=== PATIENT | female | born 1965 ===

== ENCOUNTER 2018-01-20 18:39 | Emergency (ER) | payer OTHER ==
[2018-01-20 18:39] VITALS: BMI 23.0
[2018-01-20] MEDS: Albuterol-Ipratrop 3 mg / 0.5 (3 ml) UD INH STA ×2 (19:15→19:25)
[2018-01-20 19:19] LABS: BASO % 0.1 % (0.0-2.0); EOS % 0.2 % (0.0-4.0); HEMOGLOBIN 12.9 g/dL (11.0-16.0); LYMPH # 2.5 K/uL (1.0-4.3); LYMPH % 13.7 % (20.0-40.0); MEAN CELL VOLUME 91.5 fL (81.0-99.0); MEAN CORPUSCULAR HEMOGLOBIN 31.3 pg (27.0-31.0); MEAN CORPUSCULAR HGB CONC 34.2 g/dL (33.0-37.0); MEAN PLATELET VOLUME 9.1 fL (7.2-11.7); MONO # 1.3 K/uL (0.0-0.8); NEUT # 14.2 K/uL (1.8-7.0); NRBC % 0.1 % (0.0-2.0); RBC 4.13 Mil/uL (3.80-5.20)
[2018-01-20] MEDS ORDERED: Albuterol-Ipratrop 3 mg / 0.5 (3 ml) UD ONE ×2 (19:20→20:31)
[2018-01-20 19:31] LABS: CALCIUM 9.7 mg/dl (8.6-10.4); GFR NON-AFRICAN AMERICAN > 60
[2018-01-20 19:37] LABS: ALB/GLOB RATIO 1.2 (1.0-2.1); ALBUMIN 4.1 g/dL (3.5-5.0); ALT/SGPT 42 U/L (9-52); AST/SGOT 31 U/L (14-36); BLOOD UREA NITROGEN 12 mg/dL (7-17)
[2018-01-20 19:42] LABS: B-TYPE NATRIURETIC PEPTIDE 329 pg/mL (0-900)
[2018-01-20] MEDS ORDERED: Albuterol-Ipratrop 3 mg / 0.5 (3 ml) UD INH STA (20:11)
[2018-01-20 20:44] LABS: SQUAMOUS EPITHIAL 1 /hpf (0-5); URINE BACTERIA RARE (<OCC); URINE BILIRUBIN NEGATIVE (NEGATIVE); URINE BLOOD NEGATIVE (NEGATIVE); URINE CLARITY Clear (Clear); URINE COLOR Yellow (YELLOW); URINE GLUCOSE (UA) 3+ mg/dL (Normal); URINE LEUKOCYTE ESTERASE NEG Leu/uL (Negative); URINE PROTEIN NEGATIVE (NEGATIVE); URINE UROBILINOGEN NORMAL mg/dL (0.2-1.0)
[2018-01-20 20:59] LABS: BARBITURATES, UR NEGATIVE (NEGATIVE); BENZODIAZEPINES, UR NEGATIVE (NEGATIVE); PHENCYCLIDINE, UR NEGATIVE (NEGATIVE)
[2018-01-20 21:01] LABS: OPIATES, UR POSITIVE (NEGATIVE)
--- NOTE | 2018-01-20 21:06 | C.PDOC ---
History Of Present Illness 52 y/o female presents to the ER complaining of wheezing and SOB which has been present for the past 3 weeks. Patient states that she was given Medrol Dosepak 3 weeks ago. However, the symptoms returned over the past 2 weeks. Patient reports that she uses Prednisone for rheumatoid arthritis and she has been using Prednisone taper 20 mg x 3 days and 10 mg x 3 days, and 5 mg x 3 days. She notes that she has been using Albuterol MDI without an aerochamber spacer. She usually uses 1 amp of nebulizer every 5 hours but she ran out of her liquids. Denies having cough, chest pain, fever, and chills. Time Seen by Provider: 01/20/18 18:57 Chief Complaint (Nursing): Shortness Of Breath History Per: Patient History/Exam Limitations: no limitations Onset/Duration Of Symptoms: Days Current Symptoms Are (Timing): Still Present Severity: Moderate Past Medical History Reviewed: Historical Data, Nursing Documentation, Vital Signs Vital Signs: Last Vital Signs Temp 98.5 F 01/20/18 21:30 Pulse 72 01/20/18 21:30 Resp 16 01/20/18 21:30 BP 154/80 H 01/20/18 21:30 Pulse Ox 94 L 01/20/18 21:37 - Medical History PMH: Asthma, Fibromyalgia, HTN, Rheumatoid Arthritis Denies: Chronic Kidney Disease Other Surgeries: Hx of surgeries Family History: States: No Known Family Hx - Social History Hx Tobacco Use: No Hx Alcohol Use: No Hx Substance Use: No - Immunization History Hx Tetanus Toxoid Vaccination: No Hx Influenza Vaccination: No Hx Pneumococcal Vaccination: No Review Of Systems Except As Marked, All Systems Reviewed And Found Negative. Constitutional: Negative for: Fever, Chills Cardiovascular: Negative for: Chest Pain Respiratory: Positive for: Shortness of Breath, Wheezing. Negative for: Cough Physical Exam - Physical Exam Appears: Non-toxic, No Acute Distress Skin: Normal Color, Warm, Dry Head: Atraumatic, Normacephalic Eye(s): bilateral: Normal Inspection Nose: Normal Oral Mucosa: Moist Neck: Other (developing buffalo hump, supraclavicular fat pads) Chest: Symmetrical Cardiovascular: Rhythm Regular Respiratory: No Rales, Rhonchi (mild to moderate), Wheezing (mild to moderate wheezing) Gastrointestinal/Abdominal: Soft, No Tenderness, No Guarding, No Rebound, Other (obese) Neurological/Psych: Oriented x3, Normal Speech ED Course And Treatment - Laboratory Results Result Diagrams: 01/20/18 19:15 01/20/18 19:15 Lab Interpretation: Abnormal (leukocytosis, tox + opiates) Urine POC: Negative ECG: Interpreted By Me ECG Rhythm: Sinus Rhythm ECG Interpretation: Normal Rate From EC O2 Sat by Pulse Oximetry: 94 Pulse Ox Interpretation: Abnormal Reevaluation Time: 21:05 Reassessment Condition: Improved Medical Decision Making Medical Decision Making: poor inhaler/MDI technique at home, ran out of neb liquids and timid to use regularly. 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 Persistent Narcotics use h/o abuse [place] [employer] 12 prescriptions from 9 prescribers Disposition Doctor Will See Patient In The: Office Counseled Patient/Family Regarding: Studies Performed, Diagnosis - Disposition Referrals: [facility] [Outside] [facility] [Outside] [facility] [Outside] [place] [facility] [Outside] Disposition: HOME/ ROUTINE Disposition Time: 21:06 Condition: GOOD Additional Instructions: Asthma no further steroids as pt developing Cecil Syndrome and underusing nebulizer treatments MDI to be used with Aerochamber Spacer- makes much more effective Always 2 ampules of Duoneb liquids for inhaled treamtments, every 3-4 hours More treatments @ night if difficulty sleeping/coughing. Extensively educated. Cecil Syndrome: outpatient ACTH, 24 hour urine cortisol stop all steroids Opoid use: Seek assitance through our outpatient resources. Prescriptions: Albuterol HFA [Ventolin HFA 90 mcg/actuation (8 g)] 2 puff IH Q4H PRN #1 puff PRN Reason: asthma Albuterol/Ipratropium [Duoneb 3 MG/3 Ml-0.5 MG/3 Ml 3 Ml] 6 ml IH Q4H PRN #100 neb PRN Reason: asthma Spacer, Inhalation [Aerochamber] 1 dev IH DAILY #1 dev Instructions: Lumberton's Syndrome, Asthma in Adults Forms: [facility]Kinyarwanda) - Clinical Impression Clinical Impression: Chronic pain, Asthma, Cushings syndrome - Scribe Statement The provider has reviewed the documentation as recorded by the Melody Wolf Provider Attestation: All medical record entries made by the Scribe were at my direction and personally dictated by me. I have reviewed the chart and agree that the record accurately reflects my personal performance of the history, physical exam, medical decision making, and the department course for this patient. I have also personally directed, reviewed, and agree with the discharge instructions and disposition.
--- NOTE | 2018-01-20 21:10 | C.PDOC ---
History Of Present Illness 52 y/o female presents to the ER complaining of wheezing and SOB which has been present for the past 3 weeks. Patient states that she was given Medrol Dosepak 3 weeks ago. However, the symptoms returned over the past 2 weeks. Patient reports that she uses Prednisone for rheumatoid arthritis and she has been using Prednisone taper 20 mg x 3 days and 10 mg x 3 days, and 5 mg x 3 days. She notes that she has been using Albuterol MDI without a valved holding chamber. She usually uses 1 amp of nebulizer every 5 hours but she ran out of her liquids. Denies having cough, chest pain, fever, and chills. Time Seen by Provider: 01/20/18 18:57 Chief Complaint (Nursing): Shortness Of Breath History Per: Patient History/Exam Limitations: no limitations Onset/Duration Of Symptoms: Days Current Symptoms Are (Timing): Still Present Severity: Moderate Past Medical History Reviewed: Historical Data, Nursing Documentation, Vital Signs Vital Signs: Last Vital Signs Temp 98.3 F 01/20/18 18:43 Pulse 102 H 01/20/18 18:43 Resp 20 01/20/18 19:25 BP 132/82 01/20/18 18:43 Pulse Ox 94 L 01/20/18 18:43 - Medical History PMH: Asthma, Fibromyalgia, HTN, Rheumatoid Arthritis Denies: Chronic Kidney Disease Other Surgeries: Hx of surgeries Family History: States: No Known Family Hx - Social History Hx Tobacco Use: No Hx Alcohol Use: No Hx Substance Use: No - Immunization History Hx Tetanus Toxoid Vaccination: No Hx Influenza Vaccination: No Hx Pneumococcal Vaccination: No Review Of Systems Except As Marked, All Systems Reviewed And Found Negative. Constitutional: Negative for: Fever, Chills Cardiovascular: Negative for: Chest Pain Respiratory: Positive for: Shortness of Breath, Wheezing. Negative for: Cough Physical Exam - Physical Exam Appears: Non-toxic, No Acute Distress Skin: Normal Color, Warm, Dry Head: Atraumatic, Normacephalic Eye(s): bilateral: Normal Inspection Nose: Normal Oral Mucosa: Moist Neck: Other (developing buffalo hump, supraclavicular fat pads) Chest: Symmetrical Cardiovascular: Rhythm Regular Respiratory: No Rales, Rhonchi (mild to moderate ), Wheezing (mild to moderate b /l wheezing) Gastrointestinal/Abdominal: Soft, No Tenderness, No Guarding, No Rebound Extremity: Normal ROM, Other (thin lower extremities) Neurological/Psych: Oriented x3, Normal Speech ED Course And Treatment - Laboratory Results Result Diagrams: 01/20/18 19:15 01/20/18 19:15 O2 Sat by Pulse Oximetry: 94 Disposition - Disposition - Scribe Statement The provider has reviewed the documentation as recorded by the Brooksibe May Wolf Provider Attestation: All medical record entries made by the Scribe were at my direction and personally dictated by me. I have reviewed the chart and agree that the record accurately reflects my personal performance of the history, physical exam, medical decision making, and the department course for this patient. I have also personally directed, reviewed, and agree with the discharge instructions and disposition.
[2018-01-20 21:31] VITALS: BP 154/80; PULSE 72; RESP 16; TEMP 98.5
[2018-01-20 21:33] VITALS: O2SAT 94
--- NOTE | 2018-01-21 08:12 | RAD ---
HISTORY: COMPARISON: 03/05/2016. TECHNIQUE: Chest PA and lateral FINDINGS: LINES AND TUBES: None. LUNG AND PLEURA: The lungs are well inflated. The increased streaky opacities in the lungs and mild peribronchial thickening. No pleural effusion or pneumothorax. HEART AND MEDIASTINUM: The heart is not enlarged. The hilar and mediastinal contours are within normal limits. SKELETAL STRUCTURES: The bony structures are within normal limits for the patient's age. VISUALIZED UPPER ABDOMEN: Normal. OTHER FINDINGS: None. IMPRESSION: Findings are most compatible with reactive small airway disease/asthma. No focal consolidation.
--- NOTE | 2018-01-21 19:30 | CARD ---
APPROVED REPORT Date of service: 01/20/2018 EKG Measurement Heart [id number] OR 136P44 [id number] <Conclusion> Normal sinus rhythm Possible Left atrial enlargement Borderline ECG
== END 2018-01-20 21:30 | disposition home or self-care (01) ==
LOC: C.ER 18:39
DX: J45.909 Unspecified asthma, uncomplicated (principal); G89.29 Other chronic pain; E24.9 Cushing's syndrome, unspecified; I10 Essential (primary) hypertension; M06.9 Rheumatoid arthritis, unspecified; M79.7 Fibromyalgia
CPT/HCPCS: 71046; 80053; 80324; 80345; 80346; 80349; 80353; 80358; 80361; 81001; 83880; 83992; 84484; 84703; 85025; 93005; 94640; 96374; 96375; 99285; J2930

== ENCOUNTER 2018-06-27 12:29 | Emergency (ER) | payer OTHER ==
[2018-06-27 12:29] VITALS: BMI 23.0
[2018-06-27 13:04] VITALS: BP 127/83; PULSE 100; RESP 18; TEMP 98.2; O2SAT 100
--- NOTE | 2018-06-27 13:07 | C.PDOC ---
History Of Present Illness 53 year old female presents to the ED complaining of digitally and positionally reproducible pain to the right upper chest since yesterday. Patient has a PMHx of asthma, reports treating herself with nebulizers at home with good control. She also complains of occasional dry non-productive cough. Otherwise she denies any fever, chills, SOB, RANDALL, nausea, vomiting, cold sweats, pleuritic pain, or leg pain/swelling. Time Seen by Provider: 06/27/18 13:02 Chief Complaint (Nursing): Chest Pain History Per: Patient History/Exam Limitations: no limitations Onset/Duration Of Symptoms: Days (x 2) Current Symptoms Are (Timing): Still Present Quality: "Pain" Past Medical History Reviewed: Historical Data, Nursing Documentation, Vital Signs Vital Signs: Last Vital Signs Temp 98.2 F 06/27/18 12:55 Pulse 100 H 06/27/18 12:55 Resp 18 06/27/18 12:55 BP 127/83 06/27/18 12:55 Pulse Ox 100 06/27/18 12:55 - Medical History PMH: Asthma, Fibromyalgia, HTN, Rheumatoid Arthritis Denies: Chronic Kidney Disease Family History: States: Unknown Family Hx - Social History Hx Tobacco Use: No Hx Alcohol Use: No Hx Substance Use: No - Immunization History Hx Tetanus Toxoid Vaccination: Yes Hx Influenza Vaccination: Yes Hx Pneumococcal Vaccination: Yes Review Of Systems Except As Marked, All Systems Reviewed And Found Negative. Constitutional: Negative for: Fever, Chills, Sweats Eyes: Negative for: Vision Change Cardiovascular: Positive for: Chest Pain Respiratory: Positive for: Cough. Negative for: Shortness of Breath, SOB with Excertion, Sputum Gastrointestinal: Negative for: Nausea, Vomiting, Diarrhea Neurological: Negative for: Weakness, Dizziness Physical Exam - Physical Exam Appears: Well, Non-toxic, No Acute Distress Skin: Warm, Dry Head: Atraumatic, Normacephalic Eye(s): bilateral: Normal Inspection, PERRL, EOMI Oral Mucosa: Moist Neck: Normal ROM Chest: Tenderness (digitally reproducible pain to right pectoralis muscle, mid- clavicular line, and T3-4 intracostal area), No Ecchymosis (and no erythema or skin changes) Cardiovascular: Rhythm Regular, No Murmur Respiratory: Normal Breath Sounds, No Rales, No Rhonchi, No Wheezing Extremity: Bilateral: Atraumatic, Normal Color And Temperature Pulses: Left Radial: Normal, Right Radial: Normal Neurological/Psych: Oriented x3, Normal Speech, Normal Cranial Nerves Gait: Steady ED Course And Treatment O2 Sat by Pulse Oximetry: 100 (RA) Pulse Ox Interpretation: Normal Medical Decision Making Medical Decision Making: Plan: Motrin PO given for pain Impression: digitally and positionally R anterior chest wall discomfort clear lungs no rash Dx costochondritis Disposition Doctor Will See Patient In The: Office Counseled Patient/Family Regarding: Studies Performed, Diagnosis - Disposition Referrals: [facility] [Outside] [facility] [place] [Outside] [facility] [Outside] [facility] [Outside] Disposition: HOME/ ROUTINE Disposition Time: 13:06 Condition: GOOD Additional Instructions: motrin/advil 400-600 mg every 6 hours as needed no heat treatments ice packs 1/2 hour per hour no heavy lifting for 1 week Instructions: Costochondritis Forms: [facility] (Spanish) - Clinical Impression Clinical Impression: Chest wall discomfort - Scribe Statement The provider has reviewed the documentation as recorded by the Melody Lauren Provider Attestation: All medical record entries made by the Brooksibe were at my direction and personally dictated by me. I have reviewed the chart and agree that the record accurately reflects my personal performance of the history, physical exam, medical decision making, and the department course for this patient. I have also personally directed, reviewed, and agree with the discharge instructions and disposition.
--- NOTE | 2018-06-29 13:56 | CARD ---
APPROVED REPORT Date of service: 06/27/2018 EKG Measurement Heart [id number] OR 140P50 [id number] <Conclusion> Normal sinus rhythm Possible Left atrial enlargement Poor R wave progression - probable normal variant Abnormal ECG
== END 2018-06-27 13:16 | disposition home or self-care (01) ==
LOC: C.ER 12:29
DX: R07.89 Other chest pain (principal)

== ENCOUNTER 2018-07-25 22:54 | Emergency (ER) | payer OTHER ==
[2018-07-25 22:54] VITALS: BMI 23.0
--- NOTE | 2018-07-25 23:36 | C.PDOC ---
History Of Present Illness 53 year old female with PMHx of rheumatoid arthritis and fibromyalgia presents to the ED c/o bilateral parasternal chest pain. Patient reports pain aggravated after she was aggressively plunging a toilet earlier today. Patient reports she took Motrin 400 approximately 7 hours ago and one percocet ICE SKATER. Patient denies fever, chills, nausea, vomit, SOB, palpitations, weakness, numbness. Time Seen by Provider: 07/25/18 23:23 Chief Complaint (Nursing): Chest Pain History Per: Patient History/Exam Limitations: no limitations Onset/Duration Of Symptoms: Hrs Current Symptoms Are (Timing): Still Present Quality: "Pain" Exacerbating Factors: Movement Recent travel outside of the [place]: No Additional History Per: Patient Past Medical History Reviewed: Historical Data, Nursing Documentation, Vital Signs Vital Signs: Last Vital Signs Temp 98.8 F 07/25/18 22:56 Pulse 108 H 07/25/18 22:56 Resp 20 07/25/18 22:56 BP 138/89 07/25/18 22:56 Pulse Ox 96 07/25/18 22:56 - Medical History PMH: Asthma, Fibromyalgia, HTN, Rheumatoid Arthritis Denies: Chronic Kidney Disease Surgical History: No Surg Hx Family History: States: Unknown Family Hx - Social History Hx Tobacco Use: No Hx Alcohol Use: No Hx Substance Use: No - Immunization History Hx Tetanus Toxoid Vaccination: No Hx Influenza Vaccination: No Hx Pneumococcal Vaccination: No Review Of Systems Constitutional: Negative for: Fever, Chills Cardiovascular: Positive for: Chest Pain. Negative for: Palpitations Respiratory: Negative for: Cough, Shortness of Breath Gastrointestinal: Negative for: Nausea, Vomiting, Abdominal Pain Skin: Negative for: Rash Neurological: Negative for: Weakness, Numbness Physical Exam - Physical Exam Appears: Non-toxic, In Acute Distress Skin: Normal Color, Warm, Dry Head: Atraumatic, Normacephalic Eye(s): bilateral: Normal Inspection Neck: Normal ROM, Supple Chest: Symmetrical Cardiovascular: Rhythm Regular Respiratory: Normal Breath Sounds, No Rales, No Rhonchi, No Wheezing Gastrointestinal/Abdominal: Soft, No Tenderness, No Guarding, No Rebound Back: No Vertebral Tenderness Extremity: Normal ROM, No Tenderness, No Swelling Neurological/Psych: Oriented x3, Normal Speech, Normal Cognition Gait: Steady ED Course And Treatment O2 Sat by Pulse Oximetry: 96 (ON RA) Pulse Ox Interpretation: Normal Medical Decision Making Medical Decision Making: Plan: * Toradol 60 mg IM Patient has had multiple prior evaluation in the past for pain related to rheumatoid arthritis costochondral pain to b/l parasternal areas positionally reproducable, not digitally reproducable, normal EKG cinematic of aggressive toilet plunging earlier today is a likely causative factor Disposition Doctor Will See Patient In The: Office Counseled Patient/Family Regarding: Studies Performed, Diagnosis - Disposition Disposition: HOME/ ROUTINE Disposition Time: 23:57 Condition: GOOD Forms: [facility] (Beninese) - Clinical Impression Clinical Impression: Chest wall discomfort - Scribe Statement The provider has reviewed the documentation as recorded by the Scribe Delio Nolasco All medical record entries made by the Scribe were at my direction and personally dictated by me. I have reviewed the chart and agree that the record accurately reflects my personal performance of the history, physical exam, medical decision making, and the department course for this patient. I have also personally directed, reviewed, and agree with the discharge instructions and disposition.
[2018-07-26 00:56] VITALS: BP 129/88; PULSE 90; RESP 18; TEMP 98.7; O2SAT 98
--- NOTE | 2018-07-28 21:56 | CARD ---
APPROVED REPORT Date of service: 07/25/2018 EKG Measurement Heart [id number] NM 138P49 [id number] <Conclusion> Sinus tachycardia Possible Left atrial enlargement Cannot rule out Anterior infarct, age undetermined Abnormal ECG
== END 2018-07-26 00:56 | disposition home or self-care (01) ==
LOC: C.ER 22:54
DX: R07.89 Other chest pain (principal)
CPT/HCPCS: 93005; 96372; 99284; J1885